=== PATIENT | female | born 1950 | race Caucasian/White ===

== ENCOUNTER 2016-11-28 23:19 | Emergency (ER) | payer MEDICARE, OTHER ==
[2016-11-28] MEDS ORDERED: ONDANSETRON HCL INJ/PF 4 MG/2 ML SDV IV ONE (23:32)
[2016-11-28] MEDS ORDERED: MORPHINE SULFATE 10 MG/ML INJ IV ONE (23:32)
[2016-11-28] MEDS ORDERED: NORMAL SALINE 1000 ML 500 ML IV ONE (23:32)
[2016-11-29 00:47] LABS: ABSOLUTE EOSINOPHILS # (AUTO) 0.1 10^3/uL (0.0-0.6); ABSOLUTE LYMPHOCYTES (AUTO) 1.2 10^3/uL (0.5-4.7); ABSOLUTE MONOCYTES (AUTO) 0.7 10^3/uL (0.1-1.4); ABSOLUTE NEUT (AUTO) 8.4 10^3/uL (1.7-8.2); BASOPHILS % (AUTO) 0.3 % (0-2); HEMATOCRIT 44.2 % (36.0-47.0); HEMOGLOBIN 14.8 g/dL (12.0-15.5); HGB HCT DIFFERENCE 0.2; LYMPHOCYTES % (AUTO) 11.6 % (13-45); MEAN CORPUSCULAR HEMOGLOBIN 28.1 pg (27.0-33.4); MEAN CORPUSCULAR HGB CONC 33.4 g/dL (32.0-36.0); MEAN CORPUSCULAR VOLUME 84 fl (80-97); MONOCYTES % (AUTO) 6.4 % (3-13); RED BLOOD COUNT 5.25 10^6/uL (3.72-5.28); RED CELL DISTRIBUTION WIDTH 14.3 % (11.5-14.0); SEGMENTED NEUTROPHILS % (AUTO) 80.7 % (42-78); WHITE BLOOD COUNT 10.5 10^3/uL (4.0-10.5)
[2016-11-29 01:05] LABS: ALANINE AMINOTRANSFERASE 32 U/L (9-52); ALBUMIN 4.8 g/dL (3.5-5.0); ALKALINE PHOSPHATASE 121 U/L (38-126); ANION GAP 12 (5-19); ASPARTATE AMINO TRANSFERASE 21 U/L (14-36); BILIRUBIN,TOTAL 0.8 mg/dL (0.2-1.3); BLOOD UREA NITROGEN 13 mg/dL (7-20); CALCIUM 10.2 mg/dL (8.4-10.2); CARBON DIOXIDE 27 mmol/L (22-30); CHLORIDE 101 mmol/L (98-107); CREATINE KINASE 49 U/L (30-135); CREATININE RESULT 0.62 mg/dL (0.52-1.25); GLUCOSE 115 mg/dL (75-110); POTASSIUM 4.5 mmol/L (3.6-5.0); SODIUM 139.5 mmol/L (137-145); TOTAL PROTEIN 7.3 g/dL (6.3-8.2)
[2016-11-29 01:13] LABS: CREATINE KINASE MB 0.51 ng/mL (<4.55)
[2016-11-29 01:17] LABS: TROPONIN I < 0.012 ng/mL
--- NOTE | 2016-11-29 01:37 | ER Document Report ---
ED General - General Chief Complaint: Chest Pain Stated Complaint: NECK/CHEST PAIN Notes: Patient is 66-year-old female presents with complaint of pain was initially in her neck and trapezius area but now is ready into her left upper chest. Pain started 3 days ago but became more into her chest today. Pain is worse when she takes a deep breath. No fevers. She has no focal vomiting. She's had some mild amount of upper abdominal pain as well. She did have a Kaleb-en-Y surgery performed due to severe acid reflux. This was performed in May. She 's had no complications since then. She does not take any acid reflux type medications. No history of cardiac disease. No history of hypertension and diabetes. She does not smoke. No history of PE or DVT. No recent leg pain or leg swelling. She had normal nuclear stress test almost exactly one year ago. TRAVEL OUTSIDE OF THE [place] IN LAST 30 DAYS: No - Related Data Allergies/Adverse Reactions: Sulfa (Sulfonamide Antibiotics) Allergy (Verified 10/02/14 12:57) Past Medical History - Social History Smoking Status: Never Smoker Frequency of alcohol use: None Drug Abuse: None Family History: Reviewed & Not Pertinent Pulmonary Medical History: Reports: Hx Asthma, Hx COPD, Hx Pneumonia Neurological Medical History: Denies: Hx Seizures GI Medical History: Reports: Hx Gastroesophageal Reflux Disease Past Surgical History: Reports: Hx Abdominal Surgery - doug fundoplication, Hx Cholecystectomy, Hx Genitourinary Surgery - bladder sling, Hx Gynecologic Surgery - D&C, Hx Hysterectomy - Immunizations Hx Diphtheria, Pertussis, Tetanus Vaccination: - unk Review of Systems - Review of Systems Notes: My Normal Review Basic REVIEW OF SYSTEMS: CONSTITUTIONAL : Denies fever, chills, or sweats. Denies recent illness. EENT: Denies eye, ear, throat, or mouth pain or symptoms. Denies nasal or sinus congestion. CARDIOVASCULAR: Pleuritic chest pain RESPIRATORY: Denies cough, cold, or chest congestion. Denies shortness of breath, difficulty breathing, or wheezing. GASTROINTESTINAL: Mild upper abdominal pain. Some nausea. Denies constipation. Last BM: GENITOURINARY: Denies difficulty urinating, painful urination, burning, frequency, or blood in urine. MUSCULOSKELETAL: Denies neck or back pain or joint pain or swelling. SKIN: Denies rash or skin lesions. NEUROLOGICAL: Denies altered mental status or loss of consciousness. Denies headache. Denies weakness or paralysis or loss of use of either side. Denies problems with gait or speech. Denies sensory or motor loss. ALL OTHER SYSTEMS REVIEWED AND NEGATIVE. Physical Exam - Vital signs Vitals: Temp Pulse Resp BP Pulse Ox 98.4 F 90 14 120/63 96 11/28/16 23:30 11/28/16 23:30 11/28/16 23:30 11/28/16 23:30 11/28/16 23:30 - Notes Notes: General Appearance: Well nourished, alert, cooperative, no acute distress, no obvious discomfort. Vitals: reviewed, See vital signs table. Head: no swelling or tenderness to the head Eyes: PERRL, EOMI, Conjuctiva clear Mouth: No decreasd moisture Throat: No tonsillar inflammation, No airway obstruction, No lymphadenopathy Chest wall: Patient is very tender to palpation of the left anterior chest wall. A previous palpation the same pain patient's been having. Neck: Supple, no neck tenderness, No thyromegaly Lungs: No wheezing, No rales, No rhonci, No accessory muscle use, good air exchange bilaterally. Heart: Normal rate, Regular rythm, No murmur, no rub Abdomen: Normal BS, soft, No rigidity, mild upper abdominal tenderness to palpation, No guarding, no rebound, no abdominal masses, no organomegaly Extremities: strength 5/5 in all extremities, good pulses in all extremities, no swelling or tenderness in the extremities, no edema. Skin: warm, dry, appropriate color, no rash Neuro: speech clear, oriented x 3, normal affect, responds appropriately to questions. Course - Re-evaluation Re-evalutation: 11/29/16 02:28 Chest x-ray read is not back. I just looked patient's chest x-ray and she has what appears to be a possible diaphragmatic rupture. I will send her to CT scan right away to see if this is actually diaphragm rupture or not. Patient clinically still looks well. She has pain but she is not toxic appearing. Her blood pressure is a little in the low side with her systolic being in the 90s. We will send a CT scan immediately so I can determine exactly what the findings on chest x-ray mean. 11/29/16 04:[address] scan does confirm that she does have a diaphragmatic hernia. I did call and speak with Dr. Menezes, surgeon, for Dr. Cabrera, at [facility]. He requested we send the patient as an ED to ED transfer so that he can see her immediately to determine if he has to intervene or not. I spoke with the patient and she agrees with transfer. 11/29/16 05:16 Transport is arrived. Patient is medically stable for transfer port. She is awake and alert and well-appearing at time of transfer. - Vital Signs Vital signs: Temp Pulse Resp BP Pulse Ox 98.4 F 90 14 96/57 L 94 11/28/16 23:30 11/28/16 23:30 11/29/16 04:16 11/29/16 04:16 11/29/16 04:01 - Laboratory Result Diagrams: 11/29/16 00:37 11/29/16 00:37 Laboratory results interpreted by me: 11/29/16 11/29/16 11/29/16 00:37 00:37 00:37 RDW 14.3 H Seg Neutrophils % 80.7 H Lymphocytes % 11.6 L Absolute Neutrophils 8.4 H D-Dimer 0.88 H Glucose 115 H - EKG Interpretation by Me Additional EKG results interpreted by me: 11/29/16 01:43 EKG is reviewed and interpreted by me. EKG shows sinus rhythm with rate of [address] segment elevation or depression. No ischemic T wave inversions. Occasional PAC. MS interval, QRS duration, QTC intervals are within normal range. Old EKG for comparison is from 11/20/2015. - Transfer of Care Notes: 11/29/16 05:17 Patient unfortunately has diaphragmatic hernia. Dr. Menezes was very kind and accepted her to [facility] for further treatment of her diaphragmatic hernia which I suspect is causing her chest pain, upper back pain, and vomiting. Dictation of this chart was performed using voice recognition software; therefore, there may be some unintended grammatical errors. Discharge - Discharge Clinical Impression: Diaphragmatic hernia Qualifiers: Obstruction and gangrene presence: without obstruction or gangrene Qualified Code(s): K44.9 - Diaphragmatic hernia without obstruction or gangrene Condition: Stable Disposition: [facility]
[2016-11-29] MEDS ORDERED: MORPHINE SULFATE 10 MG/ML INJ IV ONE (02:14)
[2016-11-29] MEDS ORDERED: FENTANYL CITRATE INJ/PF 100 MCG/2 ML AMPUL IV ONE ×2 (03:06→05:08)
[2016-11-29 05:27] VITALS: BP 107/56
--- NOTE | 2016-11-29 12:32 | EKG REPORT ---
SEVERITY:- OTHERWISE NORMAL ECG - SINUS RHYTHM VENTRICULAR PREMATURE COMPLEX : Confirmed by: Fabienne Poole 29-Nov-2016 12:31:38
== END 2016-11-29 05:24 | disposition short-term general hospital (02) ==
LOC: ER 23:19
DX: K44.9 Diaphragmatic hernia without obstruction or gangrene (principal); R07.9 Chest pain, unspecified; I49.1 Atrial premature depolarization; R10.10 Upper abdominal pain, unspecified; R11.2 Nausea with vomiting, unspecified; J44.9 Chronic obstructive pulmonary disease, unspecified; J45.909 Unspecified asthma, uncomplicated; Z98.890 Other specified postprocedural states; Z87.19 Personal history of other diseases of the digestive system; Z88.2 Allergy status to sulfonamides; Z87.01 Personal history of pneumonia (recurrent); Z90.49 Acquired absence of other specified parts of digestive tract
CPT/HCPCS: 93005; 96376; 99285; 96361; 96374; 96375; 36415; 82553; 82550; 85025; 80053; 84484; 85379; 71010; 71275; 74177; 93010; J3010; J2270; J2405; J7030

== ENCOUNTER 2017-12-23 08:08 | Emergency (ER) | payer MEDICARE, OTHER ==
[2017-12-23] MEDS ORDERED: ASPIRIN 81 MG TABLET, CHEWABLE PO ONE (08:40)
--- NOTE | 2017-12-23 09:10 | ER Document Report ---
ED General - General Chief Complaint: Chest Pain > 30 Stated Complaint: CHEST PAIN Time Seen by Provider: 12/23/17 08:49 Notes: Patient is a 67-year-old female presents emergency department complaining of chest wall pain. Patient states that her pain started yesterday morning when she woke up. She denies any heavy lifting or recent physical activity, falls or trauma. She states that it is a burning constant pain that is worse with movement and at its worst a 4 out of 5 in severity. She points to her left pectoral muscle as being the source for discomfort. She states it is worse with lying down it with deep inspiration. Take anything for pain prior to arrival. Denies any recent upper respiratory infection, fever or chills. Past medical history significant for history of COPD, urge incontinence, restless leg syndrome, GERD, hyperlipidemia, history of Kaur's esophagus and gastroparesis. Past surgical history significant for 3 previous hiatal hernia repairs with fundoplication, cholecystectomy, bladder sling, D&C and Kaleb-en-Y in May. Social history: Denies any tobacco use. Admits to social alcohol use admits to daily marijuana use. TRAVEL OUTSIDE OF THE [place] IN LAST 30 DAYS: No - Related Data Allergies/Adverse Reactions: Sulfa (Sulfonamide Antibiotics) Allergy (Verified 10/02/14 12:57) Past Medical History - Social History Smoking Status: Never Smoker Chew tobacco use (# tins/day): No Frequency of alcohol use: Occasional Drug Abuse: None Family History: Reviewed & Not Pertinent Patient has suicidal ideation: No Patient has homicidal ideation: No Pulmonary Medical History: Reports: Hx Asthma, Hx COPD, Hx Pneumonia Neurological Medical History: Denies: Hx Seizures Renal/ Medical History: Denies: Hx Peritoneal Dialysis GI Medical History: Reports: Hx Gastroesophageal Reflux Disease Past Surgical History: Reports: Hx Abdominal Surgery - doug fundoplication, Hx Cholecystectomy, Hx Genitourinary Surgery - bladder sling, Hx Gynecologic Surgery - D&C, Hx Hysterectomy - Immunizations Hx Diphtheria, Pertussis, Tetanus Vaccination: - unk Review of Systems - Review of Systems Notes: REVIEW OF SYSTEMS: CONSTITUTIONAL : Denies fever, chills, or sweats. Denies recent illness. EENT: Denies eye, ear, throat, or mouth pain or symptoms. Denies nasal or sinus congestion or discharge. Denies throat, tongue, or mouth swelling or difficulty swallowing. CARDIOVASCULAR: See HPI denies palpitations or racing or irregular heart beat. Denies ankle edema. RESPIRATORY: Denies cough, cold, or chest congestion. Denies shortness of breath, difficulty breathing, or wheezing. GASTROINTESTINAL: Denies abdominal pain or distention. Denies nausea, vomiting , or diarrhea. Denies blood in vomitus, stools, or per rectum. Denies black, tarry stools. Denies constipation. MUSCULOSKELETAL: See HPI denies any muscle spasms, difficulty walking, extremity pain SKIN: Denies rash, lesions or sores. HEMATOLOGIC : Denies easy bruising or bleeding. LYMPHATIC: Denies swollen, enlarged glands. NEUROLOGICAL: Denies confusion or altered mental status. Denies passing out or loss of consciousness. Denies dizziness or lightheadedness. Denies headache. Denies weakness or paralysis or loss of use of either side. Denies problems with gait or speech. Denies sensory loss, numbness, or tingling. Denies seizures. PSYCHIATRIC: Denies anxiety or stress. Denies depression, suicidal ideation, or homicidal ideation. ALL OTHER SYSTEMS REVIEWED AND NEGATIVE. Dictation was performed using [employer] voice recognition software Physical Exam - Vital signs Vitals: Temp Pulse Resp BP Pulse Ox 98.0 F 94 20 129/72 H 96 12/23/17 08:21 12/23/17 08:21 12/23/17 08:21 12/23/17 08:21 12/23/17 08:21 - Notes Notes: PHYSICAL EXAM GENERAL: Alert, interacts well. HEAD: Normocephalic, atraumatic. EYES: Pupils equal, round, and reactive to light. Extraocular movements intact. ENT: Oral mucosa moist, tongue midline. NECK: Full range of motion. Supple. Trachea midline. LUNGS: Clear to auscultation bilaterally, no wheezes, rales, or rhonchi. No respiratory distress. HEART: Chest wall on the left side tender to palpation with pain reproducible palpation. Regular rate and rhythm. No murmurs, gallops, or rubs. ABDOMEN: Soft, nondistended, nontender. No guarding, rebound, or rigidity.. Bowel sounds present in all 4 quadrants. EXTREMITIES: Moves all 4 extremities spontaneously. No edema, radial and dorsalis pedis pulses 2/4 bilaterally. No cyanosis. NEUROLOGICAL: Alert and oriented x4. Normal speech. PSYCH: Normal affect, normal mood. SKIN: Warm, dry, normal turgor. No rashes or lesions noted. Course - Re-evaluation Re-evalutation: 12/23/17 14:06 Patient is a 67-year-old female is admitted with stable, no acute distress and afebrile. Patient is very well in appearance, vitals within normal limits. Low clinical suspicion for ACS given clinical history, exam, EKG without ST elevations or depressions, and negative initial troponin. HEART score less than or equal to 3. PERC rule could not be applied given patient's age. D-dimer was elevated. CTA negative for PE.. Well's score of 0. CXR without evidence of pneumothorax or pneumonia. No widened mediastinum. Aortic dissection also seems unlikely given history, symmetric pulses, CXR, and vitals. At this time will discharge with return precautions and follow-up recommendations. Discussed that evidence supports musculoskeletal cause given physical exam and benign findings at this time. Verbal discharge instructions given a the bedside and opportunity for questions given. Medication warnings reviewed. Patient is in agreement with this plan and has verbalized understanding of return precautions and the need for primary care follow-up in the next 24-72 hours. - Vital Signs Vital signs: Temp Pulse Resp BP Pulse Ox 98.9 F 94 22 H 128/82 H 95 12/23/17 14:00 12/23/17 08:21 12/23/17 14:01 12/23/17 14:00 12/23/17 14:01 - Laboratory Result Diagrams: 12/23/17 08:56 12/23/17 08:56 Laboratory results interpreted by me: 12/23/17 12/23/17 12/23/17 08:56 08:56 08:56 WBC 12.5 H MCV 79 L MCH 25.8 L RDW 18.4 H Plt Count 603 H Absolute Neutrophils 9.3 H D-Dimer 1.22 H Glucose 111 H - Diagnostic Test Radiology reviewed: Image reviewed, Reports reviewed - EKG Interpretation by Me EKG shows normal: Sinus rhythm Rate: Normal Rhythm: NSR When compared to previous EKG there are: No significant change Discharge - Discharge Clinical Impression: Chest wall pain Condition: Good Disposition: HOME, SELF-CARE Additional Instructions: CHEST PAIN OF UNCLEAR CAUSE: The exact cause of your chest pain isn't clear. Fortunately, there is no evidence of a dangerous medical condition. Further testing may be required to find the source of the pain. Most often, we find that this pain is coming from the chest wall -- the muscles or rib joints in the chest. But chest pain can come from the lung and lung lining, the esophagus, the heart valves or heart lining, and even the stomach or gallbladder. Rest. Eat lightly until the pain is gone. We may prescribe medicine for pain and inflammation. You should call the physician immediately if the pain radiates to the shoulder, jaw or arms; if you start to run a fever or develop a cough; or if you develop shortness of breath, or other new or alarming symptoms. NORMAL EXAM AND WORKUP: At this time, your examination and workup show no significant abnormality. No significant abnormal physical findings were noted. All laboratory, EKG, and imaging (x-ray, CT scans, ultrasound) studies that were ordered show no significant abnormality. Although your examination and all studies that were ordered showed no significant abnormal finding, there are no examinations and no studies that are 100% accurate. There is always the possibility that some abnormality could exist and not be detected with physical examination or within the limits and capabilities of laboratory and other studies. You should return or follow up as you were instructed on your visit today for further evaluation if your symptoms do not resolve. CHEST WALL PAIN: Your chest pain may be coming from the chest wall. This is often caused by straining the muscles or joints in the chest during physical activity, direct trauma, coughing, or vigorous vomiting. Persons with arthritis are especially prone to this type of pain, due to inflammation of the cartilage joints near the breast bone. Occasionally, no cause can be found. Rest from strenuous physical activity. This kind of chest pain is usually made worse by movement of the chest. Depending on the symptoms, we may prescribe medicine for pain, muscle relaxation, and antiinflammatory effects. If the pain is new, and seems to be due to muscle strain, cold packs can help. Otherwise, apply gentle warmth to the painful area for 15 minutes every hour or two. You should call contact the doctor immediately if things change. Further evaluation is needed if you develop a fever or cough, if the nature of the pain changes, or if you become short of breath. FOLLOW-UP CARE: If you have been referred to a physician for follow-up care, call the physician s office for an appointment as you were instructed or within the next two days. If you experience worsening or a significant change in your symptoms, notify the physician immediately or return to the Emergency Department at any time for re-evaluation. Referrals: MATTEO MOYA MD [EMERITUS] - Follow up in 1 week [facility] [Provider Group] - Follow up tomorrow
[2017-12-23 09:13] LABS: ABSOLUTE BASOPHILS # (AUTO) 0.1 10^3/uL (0.0-0.2); ABSOLUTE EOSINOPHILS # (AUTO) 0.1 10^3/uL (0.0-0.6); ABSOLUTE NEUT (AUTO) 9.3 10^3/uL (1.7-8.2); BASOPHILS % (AUTO) 0.9 % (0-2); EOSINOPHILS % (AUTO) 0.5 % (0-6); HEMATOCRIT 38.2 % (36.0-47.0); HEMOGLOBIN 12.5 g/dL (12.0-15.5); MEAN CORPUSCULAR HEMOGLOBIN 25.8 pg (27.0-33.4); MEAN CORPUSCULAR HGB CONC 32.7 g/dL (32.0-36.0); MEAN CORPUSCULAR VOLUME 79 fl (80-97); PLATELET COUNT 603 10^3/uL (150-450); RED BLOOD COUNT 4.86 10^6/uL (3.72-5.28); RED CELL DISTRIBUTION WIDTH 18.4 % (11.5-14.0); SEGMENTED NEUTROPHILS % (AUTO) 74.6 % (42-78); TOTAL CELLS COUNTED % (AUTO) 100 %; WHITE BLOOD COUNT 12.5 10^3/uL (4.0-10.5)
[2017-12-23] MEDS ORDERED: MAG HYDROX/AL HYDROX/SIMETH SUSP 30 ML UDCUP PO ONE (09:26)
[2017-12-23] MEDS ORDERED: LIDOCAINE 2% VISCOUS SOLN 20 ML UDCUP PO ONE (09:26)
[2017-12-23] MEDS ORDERED: METOCLOPRAMIDE HCL ORAL SOLN 10 MG/10 ML UDCUP PO ONE (09:26)
[2017-12-23 09:31] LABS: ALANINE AMINOTRANSFERASE 35 U/L (9-52); ALBUMIN 4.4 g/dL (3.5-5.0); ALKALINE PHOSPHATASE 126 U/L (38-126); ANION GAP 10 (5-19); ASPARTATE AMINO TRANSFERASE 26 U/L (14-36); BILIRUBIN,DIRECT 0.4 mg/dL (0.0-0.4); BILIRUBIN,TOTAL 0.4 mg/dL (0.2-1.3); BLOOD UREA NITROGEN 12 mg/dL (7-20); CALCIUM 9.4 mg/dL (8.4-10.2); CARBON DIOXIDE 25 mmol/L (22-30); CHLORIDE 107 mmol/L (98-107); CREATINE KINASE 64 U/L (30-135); GLUCOSE 111 mg/dL (75-110); SODIUM 141.8 mmol/L (137-145); TOTAL PROTEIN 7.4 g/dL (6.3-8.2)
--- NOTE | 2017-12-23 09:32 | RADIOLOGY REPORT (SQ) ---
EXAM DESCRIPTION: ACUTE ABDOMEN SERIES COMPLETED DATE/TIME: 12/23/2017 9:23 am REASON FOR STUDY: chest/epigastric pain with previous hiatal hernia COMPARISON: CT dated 11/29/2016. NUMBER OF VIEWS: Three views. TECHNIQUE: Frontal chest, supine abdomen and upright/decubitus abdomen radiographic images acquired. LIMITATIONS: None. FINDINGS: CHEST: Lungs clear of infiltrates. Mild scarring in the left lung base. FREE AIR: None. No abnormal gas collections. BOWEL GAS PATTERN: Nonobstructive pattern. No dilated loops or air fluid levels. CALCIFICATIONS: No suspicious calcifications. HARDWARE: Multiple surgical clips. SOFT TISSUES: No gross mass or suggestion of organomegaly. BONES: No acute fracture. Old rib fractures. No worrisome bone lesions. OTHER: No other significant finding. IMPRESSION: NO RADIOGRAPHIC EVIDENCE FOR ACUTE ABDOMINAL DISEASE. PREVIOUSLY SEEN LEFT DIAPHRAGMATI C HERNIA HAS BEEN SURGICALLY REPAIRED. TECHNICAL DOCUMENTATION: JOB ID: [id number] [employer]- All Rights Reserved Reading location - IP/workstation name: [email or web address]
[2017-12-23] MEDS ORDERED: KETOROLAC TROMETHAMINE INJ/PF 30 MG/1 ML SDV IV ONE (10:31)
[2017-12-23] MEDS ORDERED: ONDANSETRON HCL INJ/PF 4 MG/2 ML SDV IV ONE (10:31)
--- NOTE | 2017-12-23 12:09 | RADIOLOGY REPORT (SQ) ---
EXAM DESCRIPTION: CTA CHEST COMPLETED DATE/TIME: 12/23/2017 11:46 am REASON FOR STUDY: chest pain COMPARISON: CT angio chest 11/20/2015, 11/29/2016 Three-way abdomen series 12/23/2017 TECHNIQUE: CT scan of the chest performed using helical scanning technique with dynamic intravenous contrast injection. Images reviewed with lung, soft tissue and bone windows. Reconstructed coronal and sagittal MPR images reviewed. Additional 3 dimensional post-processing performed to develop Maximal Intensity Projection images (AL P). All images stored on PACS. All CT scanners at this facility use dose modulation, iterative reconstruction, and/or weight based d osing when appropriate to reduce radiation dose to as low as reasonably achievable (ALARA). [facility]: Dose Right [facility]: CareDose [facility]: Dose Right [facility]: Teradose 4D [facility]: MVERSE CONTRAST TYPE AND DOSE: contrast/concentration: Isovue 370.00 mg/ml; Total Contrast Delivered: 66.0 ml; Total Saline Delivered: 107.0 ml Contrast bolus adequate for pulmonary arteries and aorta. RENAL FUNCTION: Creatinine 0.62 RADIATION DOSE: CT Rad equipment meets quality standard of care and radiation dose reduction techniq ues were employed. CTDIvol: 14.3 - 19.8 mGy. DLP: 531 mGy-cm. . LIMITATIONS: None. FINDINGS: LUNGS AND PLEURA: There is minimal bibasilar atelectasis or scarring. No fluffy alveolar infiltrates worrisome for edema or pneumonia. No pleural effusion. No pneumothorax. AORTA AND GREAT VESSELS: No aneurysm. Contrast bolus not optimized for the aorta. HEART: No pericardial effusion. Minimal coronary artery calcification, no significant aortic valve ca lcification PULMONARY ARTERIES: No emboli visualized in the main pulmonary arteries or the segmental branches. HILAR AND MEDIASTINAL STRUCTURES: No identified masses or abnormal nodes. HARDWARE: None in the chest. UPPER ABDOMEN: Post splenectomy, Billroth 2 partial gastrectomy versus gastric bypass procedure, and cholecystectomy. THYROID AND OTHER SOFT TISSUES: No masses. No adenopathy. BONES: Multiple old healed and nonunited right posterolateral rib fractures. 3D MIPS: Confirm above findings. OTHER: Since the prior study from 11/29/2016, patient has had repair of the left hemidiaphragm. [place] kyle left hemidiaphragm seen on 11/29/2016 has resolved. IMPRESSION: No CT angio evidence of acute pulmonary emboli COMMENT: Quality ID # [id number]: Final reports with documentation of one or more dose reduction techniques (e.g., Automated exposure control, adjustment of the mA and/or kV according to patient size, use of iterative reconstruction technique) TECHNICAL DOCUMENTATION: JOB ID: [id number] [employer]- All Rights Reserved Reading location - IP/workstation name: [email or web address]
--- NOTE | 2017-12-23 12:32 | EKG REPORT ---
SEVERITY:- NORMAL ECG - SINUS RHYTHM : Confirmed by: Stoney Khan MD 23-Dec-2017 12:32:14
[2017-12-23 14:19] VITALS: BP 128/82
== END 2017-12-23 14:19 | disposition home or self-care (01) ==
LOC: ER 08:08
DX: R07.89 Other chest pain (principal); J44.9 Chronic obstructive pulmonary disease, unspecified; Z87.01 Personal history of pneumonia (recurrent)
CPT/HCPCS: 93005; 99285; 96374; 96375; 36415; 82550; 85025; 80053; 84484; 85379; 74022; 71275; 93010; A9270 ×2; J3490; J1885; J2405

== ENCOUNTER → 2018-03-16 | Outpatient (CLI) | payer MEDICARE, OTHER | LOC: LAB 10:56 | PROVIDERS: ATTEND Internal Medicine Gastroenterology | DX: G25.81 Restless legs syndrome (principal); K31.89 Other diseases of stomach and duodenum; D50.0 Iron deficiency anemia secondary to blood loss (chronic) | CPT/HCPCS: 36415; 82728 ==

== ENCOUNTER → 2018-04-27 | Outpatient (CLI) | payer MEDICARE, OTHER | LOC: LAB 14:53 | PROVIDERS: ATTEND Internal Medicine | DX: E55.9 Vitamin D deficiency, unspecified (principal); D50.9 Iron deficiency anemia, unspecified | CPT/HCPCS: 36415; 82306; 83540 ==

== ENCOUNTER → 2019-07-14 | Outpatient (CLI) | payer MEDICARE, OTHER ==
--- NOTE | 2019-07-14 15:17 | RADIOLOGY REPORT (SQ) ---
EXAM DESCRIPTION: MRI HEAD COMBO COMPLETED DATE/TIME: 07/14/2019 2:41 pm REASON FOR STUDY: H53.2 DIPLOPIA H53.2 DIPLOPIA COMPARISON: None. TECHNIQUE: Multiplanar imaging includes noncontrasted T1, T2, FLAIR, diffusion with ADC map and post gadolinium contrast T1 sequences. Images stored on PACS. CONTRAST TYPE AND DOSE: 10 mL Dotarem. RENAL FUNCTION: Not indicated. ACR Type II contrast agent associated with few, if any, unconfounded cases of NSF LIMITATIONS: None. FINDINGS: ANATOMY: No anomalies. Normal vascular flow voids. Pituitary fossa normal. CSF SPACES: Normal in size and contour. No hemorrhage. CEREBRUM: Sulci and gyri normal in size and contour. Occasional, scattered small foci of T2/FLAIR wh ite matter hyperintensity. No evidence of hemorrhage, mass, or extraaxial fluid collection. No abnor mal enhancement post contrast. POSTERIOR FOSSA: No signal alteration. No hemorrhage. No edema, masses, or mass effect. Internal antonio tory canals, cerebellopontine angles, mastoids normal. No enhancing lesions. No abnormal enhancement post contrast. DIFFUSION IMAGING: Negative for acute or subacute infarction. ORBITS: No masses. Globes normal. PARANASAL SINUSES: No fluid levels. Mucosa normal. OTHER: No other significant finding. IMPRESSION: 1. No MR abnormality of the brain to explain diplopia. No MR abnormality of the optic nerves. No abnormal intracranial contrast enhancement. 2. Occasional, scattered small foci of T2/FLAIR white matter hyperintensity, likely minimal small ve ssel white matter disease although nonspecific. EVIDENCE OF ACUTE STROKE: NO. TECHNICAL DOCUMENTATION: JOB ID: [id number] [employer]- All Rights Reserved Reading location - IP/workstation name: [email or web address]
== END ==
LOC: RAD 13:37
PROVIDERS: ATTEND Family Medicine
DX: H53.2 Diplopia (principal)
CPT/HCPCS: 70553; A9576

== ENCOUNTER 2019-08-30 01:48 | Inpatient (IN) | payer MEDICARE, OTHER ==
[2019-08-30 02:49] LABS: ABSOLUTE BASOPHILS # (AUTO) 0.1 10^3/uL (0.0-0.2); ABSOLUTE EOSINOPHILS # (AUTO) 0.2 10^3/uL (0.0-0.6); ABSOLUTE LYMPHOCYTES (AUTO) 3.4 10^3/uL (0.5-4.7); ABSOLUTE MONOCYTES (AUTO) 0.9 10^3/uL (0.1-1.4); BASOPHILS % (AUTO) 1.3 % (0-2); EOSINOPHILS % (AUTO) 2.4 % (0-6); HEMATOCRIT 40.5 % (36.0-47.0); HEMOGLOBIN 13.6 g/dL (12.0-15.5); MEAN CORPUSCULAR HEMOGLOBIN 28.7 pg (27.0-33.4); MEAN CORPUSCULAR HGB CONC 33.5 g/dL (32.0-36.0); MEAN CORPUSCULAR VOLUME 86 fl (80-97); MONOCYTES % (AUTO) 10.4 % (3-13); PLATELET COUNT 498 10^3/uL (150-450); RED BLOOD COUNT 4.73 10^6/uL (3.72-5.28); RED CELL DISTRIBUTION WIDTH 15.1 % (11.5-14.0); SEGMENTED NEUTROPHILS % (AUTO) 46.9 % (42-78); TOTAL CELLS COUNTED % (AUTO) 100 %; WHITE BLOOD COUNT 8.6 10^3/uL (4.0-10.5)
[2019-08-30 03:07] LABS: ALBUMIN 4.4 g/dL (3.5-5.0); ALKALINE PHOSPHATASE 72 U/L (38-126); ANION GAP 11 (5-19); ASPARTATE AMINO TRANSFERASE 17 U/L (14-36); BILIRUBIN,DIRECT 0.1 mg/dL (0.0-0.4); BILIRUBIN,TOTAL 0.4 mg/dL (0.2-1.3); BLOOD UREA NITROGEN 19 mg/dL (7-20); CALCIUM 9.8 mg/dL (8.4-10.2); CARBON DIOXIDE 23 mmol/L (22-30); CHLORIDE 108 mmol/L (98-107); GLUCOSE 80 mg/dL (75-110); POTASSIUM 4.2 mmol/L (3.6-5.0); TOTAL PROTEIN 7.3 g/dL (6.3-8.2)
--- NOTE | 2019-08-30 03:09 | RADIOLOGY REPORT (SQ) ---
CLINICAL HISTORY: syncope/fall COMPARISON: None. TECHNIQUE: CT HEAD WITHOUT IV CONTRAST on 08/30/2019 2:20 AM [employer] This exam was performed according to our departmental dose-optimization program, which includes automated exposure control, adjustment of the mA and/or kV according to patient size and/or use of iterative reconstruction technique. FINDINGS: There is no acute hemorrhage, mass effect or midline shift. Porter-white differentiation is preserved. There is no hydrocephalus. There is no significant volume loss for age. There are mild patchy hypodensities within the periventricular and subcortical white matter, consistent with microangiopathic ischemic changes. The calvarium is intact. Orbits and globes are unremarkable. The paranasal sinuses are clear. Mastoid air cells are clear. IMPRESSION: No acute intracranial findings.
[2019-08-30] MEDS ORDERED: ONDANSETRON HCL INJ/PF 4 MG/2 ML SDV IV ONE (03:17)
[2019-08-30] MEDS ORDERED: KETOROLAC TROMETHAMINE INJ/PF 30 MG/1 ML SDV IV ONE (03:37)
[2019-08-30] MEDS ORDERED: NORMAL SALINE 1000 ML 1,000 ML IV ONE ×2 (04:14→04:41)
[2019-08-30 04:58] LABS: APPEARANCE,URINE SLIGHTLY-CLOUDY; BILIRUBIN,URINE NEGATIVE (NEGATIVE); COLOR,URINE YELLOW; GLUCOSE, URINE NEGATIVE (NEGATIVE); KETONES,URINE NEGATIVE (NEGATIVE); LEUKOCYTE ESTERASE,URINE TRACE (NEGATIVE); NITRITE,URINE NEGATIVE (NEGATIVE); PROTEIN,URINE NEGATIVE (NEGATIVE); URINE SPECIFIC GRAVITY 1.013; UROBILINOGEN,URINE NEGATIVE mg/dL (<2.0)
--- NOTE | 2019-08-30 05:23 | ER Document Report ---
ED General - General Chief Complaint: Dizziness Stated Complaint: DIZZINESS,HEADACHE Time Seen by Provider: 08/30/19 01:53 Notes: Patient is a 69-year-old female presents to the emergency department for a syncopal episode. Patient voices she was in the process of turning off her fireplace to go to bed. States there was no prodrome. States she just "passed out." States she remembers waking up on the floor. States she was able to call to her who then alerted 911. Patient voices she is unsure of exactly how long she was unresponsive. Patient's denying any incontinence. States now has a headache, generalized dizziness and nausea. She is denying any chest pain, shortness of breath, vomiting, diarrhea. She is denying any fevers or dysuria. She is denying any abdominal pain. Patient voices no prodrome. States she was feeling "fine" prior to attempting to go to bed. Patient voices she does have a recent history of diplopia. States on 07/14/2019 she did undergo an MRI. Patient's denying any diplopia, blurred vision prior to the syncopal episode or currently. Patient voices a history of restless leg syndrome and GERD Medications: Omeprazole, Zoloft, Requip Allergies: Sulfa TRAVEL OUTSIDE OF THE [place] IN LAST 30 DAYS: No - Related Data Allergies/Adverse Reactions: Sulfa (Sulfonamide Antibiotics) Allergy (Verified 10/02/14 12:57) Home Medications: zoloft. meprozol. ropinerol Past Medical History - General Information source: Patient - Social History Smoking Status: Never Smoker Chew tobacco use (# tins/day): No Frequency of alcohol use: Rare Drug Abuse: None Family History: Reviewed & Not Pertinent Patient has suicidal ideation: No Patient has homicidal ideation: No Pulmonary Medical History: Reports: Hx Asthma, Hx COPD, Hx Pneumonia Neurological Medical History: Denies: Hx Seizures Renal/ Medical History: Denies: Hx Peritoneal Dialysis GI Medical History: Reports: Hx Gastroesophageal Reflux Disease Past Surgical History: Reports: Hx Abdominal Surgery - doug fundoplication, Hx Cholecystectomy, Hx Genitourinary Surgery - bladder sling, Hx Gynecologic Surgery - D&C, Hx Hysterectomy - Immunizations Hx Diphtheria, Pertussis, Tetanus Vaccination: - unk Review of Systems - Review of Systems Constitutional: denies: Fever EENT: See HPI Cardiovascular: See HPI Respiratory: denies: Cough, Short of breath Gastrointestinal: See HPI Genitourinary: denies: Dysuria Female Genitourinary: No symptoms reported Musculoskeletal: denies: Back pain, Neck pain Skin: No symptoms reported Hematologic/Lymphatic: No symptoms reported Neurological/Psychological: See HPI Physical Exam - Vital signs Vitals: Temp Resp Pulse Ox 98.8 F 21 H 96 08/30/19 02:03 08/30/19 02:03 08/30/19 02:03 - Notes Notes: GENERAL: Alert, interacts well. No acute distress. HEAD: Normocephalic, atraumatic. EYES: Pupils equal, round, and reactive to light. Extraocular movements intact. ENT: Oral mucosa moist, tongue midline. NECK: Full range of motion. Supple. Trachea midline. LUNGS: Clear to auscultation bilaterally, no wheezes, rales, or rhonchi. No respiratory distress. HEART: Regular rate and rhythm. No murmur ABDOMEN: Soft, non-tender. Non-distended. Bowel sounds present in all 4 quadrants. EXTREMITIES: Moves all 4 extremities spontaneously. No edema, normal radial and dorsalis pedis pulses bilaterally. No cyanosis. 5 out of 5 strength noted all 4 extremities. BACK: no cervical, thoracic, lumbar midline tenderness. No saddle anesthesia, normal distal neurovascular exam. NEUROLOGICAL: Alert and oriented x3. Normal speech. cranial nerves II through X II grossly intact PSYCH: Normal affect, normal mood. SKIN: Warm, dry, normal turgor. No rashes or lesions noted. Course - Re-evaluation Re-evalutation: Laboratory 08/30/19 08/30/19 08/30/19 02:40 02:40 02:40 WBC 8.6 RBC 4.73 Hgb 13.6 Hct 40.5 MCV 86 MCH 28.7 MCHC 33.5 RDW 15.1 H Plt Count 498 H Lymph % (Auto) 39.0 Pender % (Auto) 10.4 Eos % (Auto) 2.4 Baso % (Auto) 1.3 Absolute Neuts (auto) 4.0 Absolute Lymphs (auto) 3.4 Absolute Monos (auto) 0.9 Absolute Eos (auto) 0.2 Absolute Basos (auto) 0.1 Seg Neutrophils % 46.9 Carboxyhemoglobin Sodium 142.2 Potassium 4.2 Chloride 108 H Carbon Dioxide 23 Anion Gap 11 BUN 19 Creatinine 0.57 Est GFR ( Amer) > 60 Est GFR (MDRD) Non-Af > 60 Glucose 80 Calcium 9.8 Total Bilirubin 0.4 Direct Bilirubin 0.1 Neonat Total Bilirubin Not Reportable Neonat Direct Bilirubin Not Reportable Neonat Indirect Bili Not Reportable AST 17 ALT 15 Alkaline Phosphatase 72 Troponin I < 0.012 Total Protein 7.3 Albumin 4.4 Urine Color Urine Appearance Urine pH Ur Specific [place] Urine Protein Urine Glucose (UA) Urine Ketones Urine Blood Urine Nitrite Urine Bilirubin Urine Urobilinogen Ur Leukocyte Esterase Urine WBC (Auto) Urine RBC (Auto) Urine Bacteria (Auto) Squamous Epi Cells Auto Urine Mucus (Auto) Urine Ascorbic Acid 08/30/19 08/30/19 03:20 04:08 WBC RBC Hgb Hct MCV MCH MCHC RDW Plt Count Lymph % (Auto) Pender % (Auto) Eos % (Auto) Baso % (Auto) Absolute Neuts (auto) Absolute Lymphs (auto) Absolute Monos (auto) Absolute Eos (auto) Absolute Basos (auto) Seg Neutrophils % Carboxyhemoglobin 1.0 Sodium Potassium Chloride Carbon Dioxide Anion Gap BUN Creatinine Est GFR ( Amer) Est GFR (MDRD) Non-Af Glucose Calcium Total Bilirubin Direct Bilirubin Neonat Total Bilirubin Neonat Direct Bilirubin Neonat Indirect Bili AST ALT Alkaline Phosphatase Troponin I Total Protein Albumin Urine Color YELLOW Urine Appearance SLIGHTLY-CLOUDY Urine pH 5.0 Ur Specific [place] 1.013 Urine Protein NEGATIVE Urine Glucose (UA) NEGATIVE Urine Ketones NEGATIVE Urine Blood NEGATIVE Urine Nitrite NEGATIVE Urine Bilirubin NEGATIVE Urine Urobilinogen NEGATIVE Ur Leukocyte Esterase TRACE H Urine WBC (Auto) 5 Urine RBC (Auto) 1 Urine Bacteria (Auto) TRACE Squamous Epi Cells Auto 3 Urine Mucus (Auto) RARE Urine Ascorbic Acid NEGATIVE Head CT 08/30/19 02:20 IMPRESSION: No acute intracranial findings. Patient does show positive orthostatic changes. She has been treated with fluids in the emergency department. She has also been treated with the Zofran and Toradol for generalized nausea and headache. Patient voices she overall does feel better at this time. I discussed this case with hospitalist Dr. Saravia who will admit the patient for continued evaluation. EKG shows a sinus rhythm rate of 82, QTc 425, no ST segment elevations or depressions noted. - Vital Signs Vital signs: Temp Pulse Resp BP Pulse Ox 98.8 F 82 12 94/50 L 93 08/30/19 02:03 08/30/19 04:28 08/30/19 05:01 08/30/19 05:01 08/30/19 05:01 - Laboratory Result Diagrams: 08/30/19 02:40 08/30/19 02:40 Laboratory results interpreted by me: 08/30/19 08/30/19 08/30/19 02:40 02:40 04:08 RDW 15.1 H Plt Count 498 H Chloride 108 H Ur Leukocyte Esterase TRACE H Discharge - Discharge Clinical Impression: Orthostatic hypotension Syncope Qualifiers: Syncope type: unspecified Qualified Code(s): R55 - Syncope and collapse Condition: Stable Disposition: ADMITTED INPATIENT Admitting Provider: Rani (Hospitalist) Unit Admitted: Telemetry
[2019-08-30] MEDS ORDERED: MAG HYDROX/AL HYDROX/SIMETH SUSP 30 ML UDCUP PO PRN (05:58)
[2019-08-30] MEDS ORDERED: LEVALBUTEROL HCL NEB 0.63 MG/3 ML AMPUL NEB PRN (05:58)
[2019-08-30] MEDS ORDERED: ZOLPIDEM TARTRATE 5 MG TABLET PO PRN (05:58)
[2019-08-30] MEDS ORDERED: PROMETHAZINE HCL INJ 25 MG/1 ML VIAL IV PRN (05:58)
[2019-08-30] MEDS ORDERED: MAGNESIUM HYDROXIDE SUSP 30 ML UDCUP PO PRN (05:58)
[2019-08-30] MEDS ORDERED: NALBUPHINE HCL INJ 10 MG/1 ML AMPULE IV PRN (06:08)
--- NOTE | 2019-08-30 06:38 | PDOC H&P ---
History of Present Illness Admission Date/PCP: 08/30/19 05:27 LUCHO QUEEN MD Patient complains of: Syncopal episode History of Present Illness: RADHA COLE is a 69 year old female who presented to the emergency room with an acute syncopal episode. Patient admits that when she was getting ready to go to bed on the evening of 08/29/2019 she got up from a seated position to turn off the fireplace and lost consciousness waking sometime later having fallen at least partially on a couch or chair and the floor. Upon regaining consciousness she called out to her who summoned the ambulance. She noted the presence of a headache, generalized dizziness and nausea after the event all of which gradually improved to resolution over the course of 2-3 hours. She denies other accompanying or associated signs and symptoms. She denies prior similar episodes. She has not identified any aggravating or ameliorating factors for her syncopal episode. In the emergency room she was found to have a normal EKG, a unremarkable CT scan of the head and an essentially unremarkable laboratory evaluation. MRI of the brain done less than 1 month ago was negative for pathologic processes. She was subsequently admitted to the hospital for further evaluation and treatment. Past Medical History Cardiac Medical History: Denies: Atrial Fibrillation, Coronary Artery Disease, Hypertension Pulmonary Medical History: Reports: Asthma, Bronchitis, Pneumonia, Respiratory Failure EENT Medical History: Denies: Cataracts, Ears - Hearing aids Neurological Medical History: Reports: Other - Restless leg syndrome Denies: Hemorrhagic CVA, Ischemic CVA, Seizures Endocrine Medical History: Denies: Diabetes Mellitus Type 1, Diabetes Mellitus Type 2, Hyperthyroidism, Hypothyroidism Renal/ Medical History: Reports: Other - Urge incontinence Denies: Chronic Kidney Disease, Nephrolithiasis Malignancy Medical History: Reports: None GI Medical History: Reports: Gastroesophageal Reflux Disease Denies: Cirrhosis, Hepatitis, Peptic Ulcer Disease Musculoskeltal Medical History: Denies: Arthritis, Fibromyalgia, Gout Skin Medical History: Denies: Eczema, Psoriasis Psychiatric Medical History: Reports: Depression Denies: Alcohol Dependency, Substance Abuse, Tobacco Dependency Traumatic Medical History: Reports: None Hematology: Denies: Anemia, Bleeding Tendencies Infectious Medical History: Reports: None Past Surgical History Past Surgical History: Reports: Cholecystectomy, Hysterectomy, Other - Gavin fundoplication, urinary bladder sling, D&C Social History Information Source: Patient Lives with: Spouse/Significant other Smoking Status: Never Smoker Electronic Cigarette use?: No Frequency of Alcohol Use: Rare Hx Recreational Drug Use: No Drugs: None Hx Prescription Drug Abuse: No - Advance Directive Resuscitation Status: Full Code Surrogate healthcare decision maker:: Ryan Cole Family History Family History: CAD, COPD. denies: DM, Hypertension, Malignancy Parental Family History Reviewed: Yes Children Family History Reviewed: No Sibling(s) Family History Reviewed.: Yes Medication/Allergy Home Medications: Ropinirole HCl [Requip] 3 mg PO QID 10/02/14 Sertraline HCl [Zoloft 50 mg Tablet] 50 mg PO DAILY 10/02/14 Fesoterodine Fumarate [Toviaz] 4 mg PO DAILY 11/20/15 Aspirin [Ecotrin 81 mg EC Tablet] 81 mg PO DAILY #0 tabec 11/23/15 Atorvastatin Calcium [Lipitor 10 mg Tablet] 10 mg PO QHS #0 tablet 11/23/15 Benzonatate [Tessalon Perles 100 mg Capsule] 200 mg PO Q8 #0 capsule 11/23/15 Hydrocodone Bit/Homatropine [Hycodan 5-1.5 mg Tablet] 1 tab PO Q6HWA #0 tablet 11/23/15 Ipratropium/Albuterol Sulfate [Duoneb 3 ml Ampul] 3 ml NEB [id number] PRN #0 vial.neb 11/23/15 Lansoprazole [Prevacid 30 mg Odt Tablet] 30 mg PO BID #0 tab.boo. 11/23/15 Ropinirole HCl [Requip 2 mg Tablet] 2 mg PO Q6 #0 tablet 11/23/15 Sertraline HCl [Zoloft 50 mg Tablet] 50 mg PO DAILY #0 tablet 11/23/15 Allergies/Adverse Reactions: Sulfa (Sulfonamide Antibiotics) Allergy (Verified 10/02/14 12:57) Review of Systems Constitutional: PRESENT: as per HPI, headache(s). ABSENT: chills, fever(s) Eyes: PRESENT: visual disturbances - Recent problems with diplopia. ABSENT: other - Eye pain Ears: ABSENT: hearing changes, other - Ear pain Nose, Mouth, and Throat: PRESENT: as per HPI, headache(s). ABSENT: mouth pain, sore throat Cardiovascular: ABSENT: chest pain, palpitations Respiratory: ABSENT: cough, dyspnea Gastrointestinal: PRESENT: as per HPI, nausea. ABSENT: abdominal pain, constipation, diarrhea, vomiting Genitourinary: ABSENT: dysuria, hematuria Musculoskeletal: ABSENT: back pain, joint swelling, muscle weakness Neurological: PRESENT: as per HPI, dizziness, syncope. ABSENT: confusion, convulsions, focal weakness, memory loss Psychiatric: ABSENT: anxiety, depression Endocrine: ABSENT: cold intolerance, heat intolerance Hematologic/Lymphatic: ABSENT: easy bleeding, easy bruising Allergic/Immunologic: ABSENT: seasonal rhinorrhea Physical Exam Vital Signs: Temp Pulse Resp BP Pulse Ox 98.8 F 82 12 94/50 L 93 08/30/19 02:03 08/30/19 04:28 08/30/19 05:01 08/30/19 05:01 08/30/19 05:01 Intake & Output 08/28/19 08/29/19 08/30/19 23:59 23:59 23:59 Weight 63.049 kg General appearance: PRESENT: no acute distress, cooperative Head exam: PRESENT: atraumatic, normocephalic Eye exam: PRESENT: conjunctiva pink. ABSENT: conjunctival injection, scleral icterus Ear exam: PRESENT: normal external ear exam. ABSENT: bleeding, drainage Mouth exam: PRESENT: dry mucosa, neck supple Neck exam: ABSENT: thyromegaly, tracheal deviation Respiratory exam: PRESENT: clear to auscultation bola, symmetrical, unlabored Cardiovascular exam: PRESENT: RRR. ABSENT: clicks, gallop, rubs Pulses: PRESENT: normal radial pulses, normal dorsalis pedis pul Vascular exam: PRESENT: normal capillary refill. ABSENT: pallor GI/Abdominal exam: PRESENT: normal bowel sounds, soft Rectal exam: PRESENT: deferred Extremities exam: ABSENT: joint swelling, pedal edema Musculoskeletal exam: ABSENT: deformity, dislocation Neurological exam: PRESENT: alert, oriented to person, oriented to place, oriented to time, oriented to situation, CN II-XII grossly intact. ABSENT: motor sensory deficit Psychiatric exam: PRESENT: appropriate affect, normal mood Skin exam: PRESENT: dry, intact, warm. ABSENT: jaundice, rash, urticaria Results Laboratory Results: 08/30/19 02:40 08/30/19 02:40 08/30/19 08/30/19 08/30/19 02:40 02:40 03:20 WBC 8.6 RBC 4.73 Hgb 13.6 Hct 40.5 MCV 86 MCH 28.7 MCHC 33.5 RDW 15.1 H Plt Count 498 H Seg Neutrophils % 46.9 Carboxyhemoglobin 1.0 Sodium 142.2 Potassium 4.2 Chloride 108 H Carbon Dioxide 23 Anion Gap 11 BUN 19 Creatinine 0.57 Est GFR ( Amer) > 60 Glucose 80 Calcium 9.8 Total Bilirubin 0.4 AST 17 Alkaline Phosphatase 72 Total Protein 7.3 Albumin 4.4 Urine Color Urine Appearance Urine pH Ur Specific [place] Urine Protein Urine Glucose (UA) Urine Ketones Urine Blood Urine Nitrite Ur Leukocyte Esterase Urine WBC (Auto) Urine RBC (Auto) 08/30/19 04:08 WBC RBC Hgb Hct MCV MCH MCHC RDW Plt Count Seg Neutrophils % Carboxyhemoglobin Sodium Potassium Chloride Carbon Dioxide Anion Gap BUN Creatinine Est GFR ( Amer) Glucose Calcium Total Bilirubin AST Alkaline Phosphatase Total Protein Albumin Urine Color YELLOW Urine Appearance SLIGHTLY-CLOUDY Urine pH 5.0 Ur Specific [place] 1.013 Urine Protein NEGATIVE Urine Glucose (UA) NEGATIVE Urine Ketones NEGATIVE Urine Blood NEGATIVE Urine Nitrite NEGATIVE Ur Leukocyte Esterase TRACE H Urine WBC (Auto) 5 Urine RBC (Auto) 1 08/30/19 02:40 Troponin I < 0.012 Impressions: Head CT 08/30/19 02:20 IMPRESSION: No acute intracranial findings. Assessment and Plan - Diagnosis (1) Syncope Qualifiers: Syncope type: unspecified Qualified Code(s): R55 - Syncope and collapse Is this a current diagnosis for this admission?: Yes (2) Orthostatic hypotension Is this a current diagnosis for this admission?: Yes (3) Asthma Qualifiers: Asthma severity: unspecified severity Asthma persistence: intermittent Asthma complication type: unspecified Qualified Code(s): J45.20 - Mild intermittent asthma, uncomplicated Is this a current diagnosis for this admission?: Yes (4) GERD (gastroesophageal reflux disease) Qualifiers: Esophagitis presence: with esophagitis Qualified Code(s): K21.0 - Gastro- esophageal reflux disease with esophagitis Is this a current diagnosis for this admission?: Yes (5) Restless leg syndrome Is this a current diagnosis for this admission?: Yes (6) Depression Qualifiers: Depression Type: unspecified Qualified Code(s): F32.9 - Major depressive disorder, single episode, unspecified Is this a current diagnosis for this admission?: Yes - Plan Summary Summary: Patient will be admitted to a medical bed with telemetry. She will receive usual supportive and symptomatic cares. She will have a cardiology consultation obtained with Dr. Renteria. An echocardiogram and carotid Doppler studies will be performed. Serial cardiac enzymes will be obtained initially. Patient's vital signs will be assessed every 4 hours with orthostatic vital signs performed every shift. Neurochecks will be performed every 4 hours. Further evaluation or treatment will be determined based upon the results of her initial studies. She will be continued on her usual medications for chronic medical illnesses as appropriate. She will use Nubain 5 to 10 mg IV every 3 cecilia rs on an as-needed basis for headache. - Time Time Spent with patient: 25-34 minutes Medications reviewed and adjusted accordingly: Yes Anticipated discharge: Home - Inpatient Certification Based on my medical assessment, after consideration of the patient's comorbidities, presenting symptoms, or acuity I expect that the services needed warrant INPATIENT care.: Yes I certify that my determination is in accordance with my understanding of Medicare's requirements for reasonable and necessary INPATIENT services [42 CFR 412.3e].: Yes Medical Necessity: Need Close Monitoring Due to Risk of Patient Decompensation, Need for Neurological Checks, Risk of Complication if Not Cared For in Hospital, Risk of Diagnosis Which Will Require Inpatient Eval/Care/Monitoring
--- NOTE | 2019-08-30 08:37 | EKG REPORT ---
SEVERITY:- NORMAL ECG - SINUS RHYTHM : Confirmed by: Stoney Khan MD 30-Aug-2019 08:37:03
[2019-08-30 09:45] LABS: CREATINE KINASE MB 0.64 ng/mL (<4.55)
[2019-08-30 09:47] LABS: TROPONIN I < 0.012 ng/mL
[2019-08-30] MEDS: HEPARIN SOD (PORCINE) 5,000 UNIT/ML 1 ML VIAL SUBCUT SCH ×3 (09:55→21:45)
[2019-08-30] MEDS: DOCUSATE SODIUM 100 MG CAPSULE PO SCH ×2 (10:02→13:27)
[2019-08-30] MEDS: FAMOTIDINE 20 MG TABLET PO SCH ×2 (10:02→17:21)
[2019-08-30 15:53] LABS: CREATINE KINASE MB 0.61 ng/mL (<4.55)
[2019-08-30 15:58] LABS: TROPONIN I < 0.012 ng/mL
[2019-08-30] MEDS ORDERED: (PENDING PHARMACY ID) (Ropinirole Hcl [Requip] 1 MG) PO PRN (17:32)
[2019-08-30] MEDS ORDERED: ROPINIROLE HCL 3 MG PO PRN (17:32)
[2019-08-30] MEDS ORDERED: ROPINIROLE HCL 1 MG TABLET PO PRN (17:55)
[2019-08-30 21:28] LABS: CREATINE KINASE MB 0.55 ng/mL (<4.55)
[2019-08-30 21:36] LABS: TROPONIN I < 0.012 ng/mL
[2019-08-30] MEDS: SERTRALINE HCL 50 MG TABLET PO SCH (21:44)
[2019-08-31 05:17] LABS: HEMOGLOBIN 12.8 g/dL (12.0-15.5); MEAN CORPUSCULAR HEMOGLOBIN 28.7 pg (27.0-33.4); MEAN CORPUSCULAR HGB CONC 33.7 g/dL (32.0-36.0); MEAN CORPUSCULAR VOLUME 85 fl (80-97); PLATELET COUNT 467 10^3/uL (150-450); RED BLOOD COUNT 4.46 10^6/uL (3.72-5.28); RED CELL DISTRIBUTION WIDTH 15.3 % (11.5-14.0); WHITE BLOOD COUNT 7.2 10^3/uL (4.0-10.5)
[2019-08-31 05:36] LABS: ANION GAP 8 (5-19); BLOOD UREA NITROGEN 15 mg/dL (7-20); CALCIUM 9.5 mg/dL (8.4-10.2); CARBON DIOXIDE 22 mmol/L (22-30); CHLORIDE 111 mmol/L (98-107); GLUCOSE 90 mg/dL (75-110); POTASSIUM 4.2 mmol/L (3.6-5.0)
[2019-08-31] MEDS: HEPARIN SOD (PORCINE) 5,000 UNIT/ML 1 ML VIAL SUBCUT SCH (06:21)
[2019-08-31] MEDS: SERTRALINE HCL 50 MG TABLET PO SCH (09:52)
[2019-08-31] MEDS ORDERED: PANTOPRAZOLE SODIUM 20 MG TABLET.DR PO SCH (10:00)
--- NOTE | 2019-08-31 12:32 | RADIOLOGY REPORT (SQ) ---
EXAM DESCRIPTION: CAROTID DOPPLER COMPLETED DATE/TIME: 08/31/2019 11:30 am REASON FOR STUDY: syncope COMPARISON: None. TECHNIQUE: Grayscale ultrasound, Doppler velocity and spectra, and color Doppler images acquired of the extra-cranial carotid and vertebral arteries. Images stored on PACS. LIMITATIONS: None. FINDINGS: RIGHT CAROTID CCA Velocities: Within normal limits. ICA Velocities Peak systolic 67 cm/s. End diastolic 25 cm/s. Proximal ICA/CCA peak systolic ratio 1.04. Spectra normal. Grayscale evaluation without significant stenosis. LEFT CAROTID CCA Velocities: Within normal limits. ICA Velocities Peak systolic 61cm/s. End diastolic 22 cm/s. Proximal ICA/CCA peak systolic ratio 0.85. Spectra normal. Grayscale evaluation without significant stenosis. VERTEBRAL ARTERIES: Antegrade flow. Normal waveforms. SUBCLAVIAN ARTERIES: Not imaged. OTHER: No other significant finding. IMPRESSION: NO HEMODYNAMICALLY SIGNIFICANT STENOSIS. COMMENT: Quality ID #[id number]: Velocity criteria are extrapolated from the diameter data as defined by t he Society of Radiologists in Ultrasound Consensus Conference. Radiology 2003: 229; 340-346. TECHNICAL DOCUMENTATION: JOB ID: [id number] [employer]- All Rights Reserved Reading location - IP/workstation name: [email or web address]
[2019-08-31 13:33] VITALS: BP 138/83
[2019-08-31] MEDS ORDERED: ROPINIROLE HCL 1 MG TABLET PO PRN (14:00)
--- NOTE | 2019-08-31 17:49 | XCELERA REPORT ---
[address] [address] Transthoracic Echocardiogram Report Name: RADHA GALLEGO Age: 69 yrs Gender: Female : 1950 Patient Status: Inpatient Patient Location: [address] [place], [place] [address] Study Date: 08/31/2019 09:58 AM Height: 64 in Weight: 139 lb BSA: 1.7 m2 Procedure: A two-dimensional transthoracic echocardiogram with color flow and Doppler was performed. Study Quality: Fair. Reason For Study: syncope History: syncope. Ordering Physician: OBDULIO KIM Performed By: Pooja Barlow Interpretation Summary The left ventricle is normal in size. There is normal left ventricular wall thickness. LV EF is 65% Left ventricular systolic function is normal. Doppler measurements suggest impaired left ventricular relaxation, which is associated with grade I/IV or mild diastolic dysfunction The left ventricular wall motion is normal. There is no thrombus. No ASD,VSD,or PFO seen. The right ventricle is normal in size and function. The right atrium is normal. The left atrial size is normal. There is no evidence of mitral valve prolapse. There is no vegetation seen on the mitral valve. There is no mitral valve stenosis. There is no mitral regurgitation noted. There is no aortic valvular vegetation. There is no aortic valve stenosis There is no LVOT obstruction. No aortic regurgitation is present. There is no tricuspid stenosis. There is a mild amount of tricuspid regurgitation There is mild pulmonary hypertension by echo RVSP is 30 to 35 mm of Hg , with RA mean of 5 to 10. There is no pulmonic valvular stenosis. There is no pulmonic valvular regurgitation. The aortic root is normal size. The inferior vena cava appeared normal and decreased > 50% with respiration (RAP 5-10 mmHg) There is no pericardial effusion. MMode/2D Measurements & Calculations IVSd: 0.77 cm LVIDd: 4.3 cm FS: 38.3 % Ao root diam: 3.4 cm LVIDs: 2.7 cm EDV(Teich): 83.9 ml Ao root area: 9.3 cm2 LVPWd: 0.89 cm ESV(Teich): 26.1 ml EF(Teich): 68.9 % Doppler Measurements & Calculations MV E max zoë: MV dec slope: Ao V2 max: LV V1 max P.0 cm/sec 376.8 cm/sec2 115.2 cm/sec 2.9 mmHg MV A max zoë: MV dec time: 0.20 secAo max PG: LV V1 max: 98.3 cm/sec 5.3 mmHg 85.3 cm/sec MV E/A: 0.77 PA V2 max: TR max zoë: 65.6 cm/sec 247.4 cm/sec PA max P.7 mmHg TR max P.6 mmHg Left Ventricle The left ventricle is normal in size. There is normal left ventricular wall thickness. LV EF is 65%. Left ventricular systolic function is normal. Doppler measurements suggest impaired left ventricular relaxation, which is associated with grade I/IV or mild diastolic dysfunction. The left ventricular wall motion is normal. There is no thrombus. No ASD,VSD,or PFO seen. Right Ventricle The right ventricle is normal in size and function. Atria The right atrium is normal. The left atrial size is normal. Mitral Valve There is no evidence of mitral valve prolapse. There is no vegetation seen on the mitral valve. There is no mitral valve stenosis. There is no mitral regurgitation noted. Aortic Valve There is no aortic valvular vegetation. There is no aortic valve stenosis. There is no LVOT obstruction. No aortic regurgitation is present. Tricuspid Valve There is no tricuspid stenosis. There is a mild amount of tricuspid regurgitation. There is mild pulmonary hypertension by echo. RVSP is 30 to 35 mm of Hg , with RA mean of 5 to 10. Pulmonic Valve There is no pulmonic valvular stenosis. There is no pulmonic valvular regurgitation. Great Vessels The aortic root is normal size. The inferior vena cava appeared normal and decreased > 50% with respiration (RAP 5-10 mmHg). Effusions There is no pericardial effusion. : OBDULIO KIM Lakshmi
--- NOTE | 2019-08-31 22:20 | Left Against Medical Advice ---
Against Medical Advice Admission Date/Time: 08/30/19 05:27 Primary Care Provider: LUCHO QUEEN MD Date of Patient Emigration: 08/31/19 - Diagnosis: (1) Asthma Is this a current diagnosis for this admission?: Yes (2) Depression Is this a current diagnosis for this admission?: Yes (3) GERD (gastroesophageal reflux disease) Is this a current diagnosis for this admission?: Yes (4) Orthostatic hypotension Is this a current diagnosis for this admission?: Yes (5) Restless leg syndrome Is this a current diagnosis for this admission?: Yes (6) Syncope Is this a current diagnosis for this admission?: Yes - Summary: Summary: Please see Admission and Progress Notes as well. RADHA GALLEGO is a 69 F, who LEFT AGAINST MEDICAL ADVICE. The Patient was admitted on 08/30/19 05:27. Admitted to the medical floor on continuous cardiac telemetry for evaluation of syncopal episode at home. She was found to be orthostatic, which resolved following IV fluids. Remaining laboratory evaluation including troponins x4, TSH, and carboxyhemoglobin were normal. Head CT was negative for acute findings. Carotid Doppler negative for hemodynamically significant stenosis. And echocardiogram echocardiogram revealed LVEF greater than 65%, mild diastolic dysfunction, mild pulmonary hypertension, but otherwise normal study. Received a phone call this afternoon at approximately 1:30pm from nursing with report that patient was sitting her intention to leave AGAINST MEDICAL ADVICE. Nursing was advised that I was awaiting the finalized carotid Doppler and echocardiogram results, but fully anticipated discharging the patient today. Nursing informed me that the patient stated that she "did not intend to wait any longer as all [she] has been told to do is wait." Nursing was asked to let the patient know that I would arrive within an hour to discuss what results were available at that time, however, I would shortly thereafter notified that the patient had chosen to leave AGAINST MEDICAL ADVICE. Fortunately, this evening the aforementioned studies came back with normal results; confirming that her syncopal episode was likely orthostatic in nature which has since been corrected.
== END 2019-08-31 13:35 | disposition left against medical advice (07) | DRG 312 ==
LOC: ER 01:48 → EH 05:27 → 4W 14:49
PROVIDERS: ADMIT Emergency Medicine; ATTEND Emergency Medicine
DX: I95.1 Orthostatic hypotension (principal); R51 Headache; J45.20 Mild intermittent asthma, uncomplicated; K21.0 Gastro-esophageal reflux disease with esophagitis; F32.9 Major depressive disorder, single episode, unspecified; G25.81 Restless legs syndrome; Z79.82 Long term (current) use of aspirin; Z79.51 Long term (current) use of inhaled steroids; Z79.899 Other long term (current) drug therapy; Z88.2 Allergy status to sulfonamides
CPT/HCPCS: 36415; 70450; 80048; 80053; 81001; 82375; 82550; 82553; 83735; 84443; 84484; 85025; 85027; 93005; 93010; 93306; 93880; 96361; 96374; 96375; 99285; J1644; J1885; J2405; J3490; J7030

== ENCOUNTER 2020-10-10 15:42 | Emergency (ER) | payer MEDICARE, OTHER ==
--- NOTE | 2020-10-10 17:24 | ER Document Report ---
ED Medical Screen (RME) - General Chief Complaint: Chest Pain Stated Complaint: CHEST PAIN Time Seen by Provider: 10/10/20 17:14 Primary Care Provider: LUCHO QUEEN MD [Primary Care Provider] - Follow up as needed TRAVEL OUTSIDE OF THE [place] IN LAST 30 DAYS: No - HPI Notes: 10/10/20 17:21 70-year-old female with a history of GERD restless legs and esophageal spasm presents to the emergency room today for left-sided chest pain that started around 1 PM this afternoon is been constant since, reports that pain radiates to her left shoulder, denies pain radiating down her arm her shoulder or her back. No history of any cardiac issues. Former smoker 30 years ago. Denies any shortness of breath, nausea, vomiting. Patient took 324 baby aspirin prior to EMS coming. no fever or chills. pt reports that her previous EKG had inverted T's when an she was at her primary care office, she does have a referral to a machinist class b in November I have greeted and performed a rapid initial assessment of this patient. A comprehensive ED assessment and evaluation of the patient, analysis of test results and completion of the medical decision making process will be conducted by additional ED providers. PHYSICAL EXAMINATION: GENERAL: Well-appearing, well-nourished and in no acute distress. CV: s1, s2 regular LUNGS: No respiratory distress Musculoskeletal: Normal range of motion NEUROLOGICAL: Normal speech, normal gait. SKIN: Warm, Dry, normal turgor, no rashes or lesions noted. The patient was evaluated during a global COVID-19 pandemic and that diagnosis was suspected/considered upon their initial presentation. Their evaluation, treatment and testing was consistent with current guidelines for patients who present with complaints or symptoms and may be related to COVID-19. - Related Data Allergies/Adverse Reactions: Sulfa (Sulfonamide Antibiotics) Allergy (Verified 10/10/20 17:15) Home Medications: omeprazole, requip, zoloft (for esophageal spasms) Past Medical History - Social History Frequency of alcohol use: None Drug Abuse: Marijuana - Past Medical History Cardiac Medical History: Denies: Hx Atrial Fibrillation, Hx Coronary Artery Disease, Hx Hypertension Pulmonary Medical History: Reports: Hx Asthma, Hx Bronchitis, Hx COPD, Hx Pneumonia, Hx Respiratory Failure Neurological Medical History: Denies: Hx Seizures Endocrine Medical History: Denies: Hx Diabetes Mellitus Type 1, Hx Diabetes Mellitus Type 2, Hx Hyperthyroidism, Hx Hypothyroidism Renal/ Medical History: Denies: Hx Peritoneal Dialysis GI Medical History: Reports: Hx Gastroesophageal Reflux Disease. Denies: Hx Cirrhosis, Hx Hepatitis Musculoskeltal Medical History: Denies Hx Arthritis, Denies Hx Fibromyalgia, Denies Hx Gout Skin Medical History: Denies Hx Eczema, Denies Hx Psoriasis Psychiatric Medical History: Reports: Hx Depression Infectious Medical History: Denies: Hx Hepatitis Past Surgical History: Reports: Hx Abdominal Surgery - doug fundoplication, Hx Cholecystectomy, Hx Genitourinary Surgery - bladder sling, Hx Gynecologic Surgery - D&C, Hx Hysterectomy, Other - Gavin fundoplication, urinary bladder sling, D&C - Immunizations Hx Diphtheria, Pertussis, Tetanus Vaccination: - unk Physical Exam - Vital signs Vitals: Temp Pulse Resp BP Pulse Ox 97.8 F 70 16 119/71 98 10/10/20 16:46 10/10/20 16:46 10/10/20 16:46 10/10/20 16:46 10/10/20 16:46 Course - Vital Signs Vital signs: Temp Pulse Resp BP Pulse Ox 97.8 F 70 16 119/71 98 10/10/20 16:46 10/10/20 16:46 10/10/20 16:46 10/10/20 16:46 10/10/20 16:46 Doctor's Discharge - Discharge Referrals: LUCHO QUEEN MD [Primary Care Provider] - Follow up as needed
--- NOTE | 2020-10-10 17:48 | RADIOLOGY REPORT (SQ) ---
EXAM DESCRIPTION: CHEST SINGLE VIEW IMAGES COMPLETED DATE/TIME: 10/10/2020 2:34 pm REASON FOR STUDY: chest pain COMPARISON: 11/23/2015. EXAM PARAMETERS: NUMBER OF VIEWS: One view. TECHNIQUE: Single frontal radiographic view of the chest acquired. RADIATION DOSE: NA LIMITATIONS: None. FINDINGS: LUNGS AND PLEURA: No opacities, masses or pneumothorax. No pleural effusion. MEDIASTINUM AND HILAR STRUCTURES: No masses. Contour normal. HEART AND VASCULAR STRUCTURES: Heart normal in size. Normal vasculature. BONES: Chronic right rib fractures. No acute abnormality. HARDWARE: None in the chest. OTHER: No other significant finding. IMPRESSION: NO ACUTE RADIOGRAPHIC FINDING IN THE CHEST. TECHNICAL DOCUMENTATION: JOB ID: [id number] 2010 [employer]- All Rights Reserved Reading location - IP/workstation name: [email or web address]
[2020-10-10 18:44] LABS: ABSOLUTE BASOPHILS # (AUTO) 0.1 10^3/uL (0.0-0.2); ABSOLUTE EOSINOPHILS # (AUTO) 0.1 10^3/uL (0.0-0.6); ABSOLUTE LYMPHOCYTES (AUTO) 3.3 10^3/uL (0.5-4.7); ABSOLUTE MONOCYTES (AUTO) 0.6 10^3/uL (0.1-1.4); ABSOLUTE NEUT (AUTO) 7.3 10^3/uL (1.7-8.2); BASOPHILS % (AUTO) 1.2 % (0-2); EOSINOPHILS % (AUTO) 1.1 % (0-6); HEMATOCRIT 38.2 % (36.0-47.0); LYMPHOCYTES % (AUTO) 29.1 % (13-45); MEAN CORPUSCULAR HEMOGLOBIN 28.6 pg (27.0-33.4); MEAN CORPUSCULAR HGB CONC 34.1 g/dL (32.0-36.0); MEAN CORPUSCULAR VOLUME 84 fl (80-97); MONOCYTES % (AUTO) 4.8 % (3-13); PLATELET COUNT 555 10^3/uL (150-450); RED BLOOD COUNT 4.56 10^6/uL (3.72-5.28); SEGMENTED NEUTROPHILS % (AUTO) 63.8 % (42-78); TOTAL CELLS COUNTED % (AUTO) 100 %; WHITE BLOOD COUNT 11.5 10^3/uL (4.0-10.5)
[2020-10-10 19:01] LABS: ALBUMIN 4.4 g/dL (3.5-5.0); ALKALINE PHOSPHATASE 98 U/L (38-126); ASPARTATE AMINO TRANSFERASE 24 U/L (14-36); BILIRUBIN,DIRECT 0.3 mg/dL (0.0-0.4); BILIRUBIN,TOTAL 0.6 mg/dL (0.2-1.3); BLOOD UREA NITROGEN 16 mg/dL (7-20); CARBON DIOXIDE 28 mmol/L (22-30); CHLORIDE 102 mmol/L (98-107); CREATINE KINASE 85 U/L (30-135); GLUCOSE 94 mg/dL (75-110); POTASSIUM 5.3 mmol/L (3.6-5.0); TOTAL PROTEIN 7.3 g/dL (6.3-8.2)
[2020-10-10 19:02] LABS: ANION GAP 8 (5-19)
[2020-10-10 19:13] LABS: CREATINE KINASE MB 0.47 ng/mL (<4.55)
[2020-10-10 19:15] LABS: TROPONIN I < 0.012 ng/mL
--- NOTE | 2020-10-10 21:35 | EKG REPORT ---
SEVERITY:- NORMAL ECG - SINUS RHYTHM : Confirmed by: Melo Arshad MD 10-Oct-2020 21:34:37
[2020-10-11] MEDS ORDERED: ACETAMINOPHEN 325 MG TABLET PO ONE (02:14)
[2020-10-11] MEDS ORDERED: ASPIRIN 325 MG TABLET PO ONE (03:15)
--- NOTE | 2020-10-11 03:15 | ER Document Report ---
ED Cardiac <ROBERTCARIDAD Kidd - Last Filed: 10/11/20 09:03> - General TRAVEL OUTSIDE OF THE [place] IN LAST 30 DAYS: No - Related Data Home Medications: omeprazole, requip, zoloft (for esophageal spasms) <KHAI BRAR - Last Filed: 10/12/20 06:48> - General Chief Complaint: Chest Pain Stated Complaint: CHEST PAIN Time Seen by Provider: 10/10/20 17:14 Primary Care Provider: АННА MOLINA MD [ACTIVE STAFF] - Follow up in 3-5 days LUCHO QUEEN MD [Primary Care Provider] - Follow up in 3-5 days - [facility] Notes: Patient is a 70-year-old female with a past medical history of gastric reflux who presents for chest heaviness and pain down her left arm. Patient states it has been present off and on for 3 weeks. She is unsure what makes it better or worse. Today, she states that the symptoms increased. She states she felt " impending doom" which is why she came to the ER. Patient told her PCP about her symptoms who referred her to her adult school teacher but the adult school teacher appointment i s not until November. She denies any back pain. No lightheadedness or dizziness. No nausea or vomiting. No leg swelling. Patient has never had a cardiac work-up. She is a non-smoker. Patient has a positive family history. (KHAI BRAR) - Related Data Allergies/Adverse Reactions: Sulfa (Sulfonamide Antibiotics) Allergy (Verified 10/10/20 17:15) Past Medical History - General Information source: Patient - Social History Smoking Status: Never Smoker Frequency of alcohol use: None Drug Abuse: Marijuana Family History: CAD, COPD. denies: DM, Hypertension, Malignancy - Past Medical History Cardiac Medical History: Denies: Hx Atrial Fibrillation, Hx Coronary Artery Disease, Hx Hypertension Pulmonary Medical History: Reports: Hx Asthma, Hx Bronchitis, Hx COPD, Hx Pneumo janet, Hx Respiratory Failure Neurological Medical History: Denies: Hx Seizures Endocrine Medical History: Denies: Hx Diabetes Mellitus Type 1, Hx Diabetes Mellitus Type 2, Hx Hyperthyroidism, Hx Hypothyroidism Renal/ Medical History: Denies: Hx Peritoneal Dialysis GI Medical History: Reports: Hx Gastroesophageal Reflux Disease. Denies: Hx Cirrhosis, Hx Hepatitis Musculoskeletal Medical History: Denies Hx Arthritis, Denies Hx Fibromyalgia, Denies Hx Gout Skin Medical History: Denies Hx Eczema, Denies Hx Psoriasis Psychiatric Medical History: Reports: Hx Depression Infectious Medical History: Denies: Hx Hepatitis Past Surgical History: Reports: Hx Abdominal Surgery - doug fundoplication, Hx Cholecystectomy, Hx Genitourinary Surgery - bladder sling, Hx Gynecologic Surgery - D&C, Hx Hysterectomy, Other - Gavin fundoplication, urinary bladder sling, D&C - Immunizations Hx Diphtheria, Pertussis, Tetanus Vaccination: - unk <KHAI BRAR - Last Filed: 10/12/20 06:48> Review of Systems <KHAI BRAR - Last Filed: 10/12/20 06:48> - Review of Systems Notes: CONSTITUTIONAL: No fever, fatigue or weight loss. SKIN: No rash. HENT: No congestion, ear pain, or sore throat. CARDIOVASCULAR: Positive for chest pain. RESPIRATORY: No cough, shortness of breath, congestion, or wheezing. GASTROINTESTINAL: No abdominal pain, nausea, vomiting, bloody stools or diarrhea. MUSCULOSKELETAL: No joint pain or swelling. NEUROLOGIC: No seizures. No headache, focal weakness or sensory changes. HEMATOLOGIC: No unusual bruising or bleeding. PSYCHIATRIC: No depression or anxiety. (KHAI BRAR) Physical Exam - General General appearance: Appears well In distress: None <KHAI BRAR - Last Filed: 10/12/20 06:48> - Vital signs Vitals: Temp Pulse Resp BP Pulse Ox 97.8 F 70 16 119/71 98 10/10/20 16:46 10/10/20 16:46 10/10/20 16:46 10/10/20 16:46 10/10/20 16:46 - General Notes: VITAL SIGNS: Within normal limits. GENERAL: No acute distress, non-toxic appearance. HEAD: Normal with no signs of head trauma. EYES: EOMI, conjunctiva normal, no discharge. NECK: Normal range of motion, no tenderness, supple, no lymphadenopathy, No adenopathy, no JVD. CHEST: Clear breath sounds bilaterally. No wheezes, rales, or rhonchi. CARDIAC: Regular rate and rhythm. S1 and S2, without murmurs, gallops, or rubs. VASCULAR: No Edema. ABDOMEN: Normal and soft with no tenderness, no masses or pulsatile masses. MUSCULOSKELETAL: Good range of motion of all major joints. Extremities without clubbing, cyanosis or edema. NEUROLOGICAL: Alert and oriented x 3. No focal sensory or strength deficits. Speech normal. Follows commands appropriately. PSYCHIATRIC: Normal Affect, judgement and mood. SKIN: Normal appearance with no rashes or lesions. (KHAI BRAR) Course - Laboratory Results Result Diagrams: 10/10/20 18:27 10/10/20 18:27 <CARIDAD JONES - Last Filed: 10/11/20 09:03> - Laboratory Results Result Diagrams: 10/10/20 18:27 10/10/20 18:27 Critical Laboratory Results Reviewed: No Critical Results - Radiology Results Critical Radiology Results Reviewed: No Critical Results - EKG Interpretation by Me EKG shows normal: Sinus rhythm Rate: Normal Rhythm: NSR When compared to previous EKG there are: No significant change <KHAI BRAR - Last Filed: 10/12/20 06:48> - Re-evaluation Re-evalutation: 10/11/20 03:13 Patient had 2 - troponins, however, she is still having chest discomfort. She states that it was the worst today that it has been. She was very afraid that something bad was going to happen to her. Risk factors include age and family history. I will discuss with the hospitalist as I do believe she warrants an echo and further work-up since her heart score is 4. I discussed with Dr. Roe, she recommended a cardiology consult in the ER and discharge, discussed with Dr. Molina who will evaluate the patient. Likely she will be discharged if cardiology is okay with this. Patient will be signed out to Dr. Jones at the end of my shift. 10/11/20 06:35 10/11/20 07:52 10/12/20 06:48 (KHAI BRAR) - Vital Signs Vital signs: Temp Pulse Resp BP Pulse Ox 97.9 F 81 14 126/94 H 96 10/11/20 04:41 10/10/20 22:20 10/11/20 09:01 10/11/20 09:00 10/11/20 09:01 - Laboratory Results Laboratory Results Interpreted: 10/10/20 10/10/20 10/11/20 18: 18:27 04:34 WBC 11.5 H Plt Count 555 H Potassium 5.3 H POC Glucose 151 H - EKG Interpretation by Me Additional EKG results interpreted by me: 10/11/20 06:34 Initial EKG with a sinus rhythm at a rate of 70. QTc 432. No acute ST changes. Repeat EKG with a sinus rhythm at a rate of 79. Artifact present. No acute ST changes. EKG is similar to previous. (KHAI BRAR) Discharge <CARIDAD JONES - Last Filed: 10/11/20 09:03> <KHAI BRAR - Last Filed: 10/12/20 06:48> - Discharge Clinical Impression: Chest pain Qualifiers: Ischemic chest pain type: other angina pectoris type Condition: Stable Disposition: HOME, SELF-CARE Additional Instructions: Chest Pain of Unclear Cause The exact cause of your chest pain isn't clear. Fortunately, there is no evidence of a dangerous medical condition. Further testing may be required to f ind the source of the pain. Most often, we find that this pain is coming from the chest wall -- the muscles or rib joints in the chest. But chest pain can come from the lung and lung lining, the esophagus, the heart valves or heart lining, and even the stomach or gallbladder. Rest. Eat lightly until the pain is gone. We may prescribe medicine for pain and inflammation. You should call the physician immediately if the pain radiates to the shoulder, jaw or arms; if you start to run a fever or develop a cough; or if you develop shortness of breath, or other new or alarming symptoms. Follow-up with Dr. Анна Molina. RETURN TO THE EMERGENCY ROOM IF ANY NEW OR WORSENING SYMPTOMS. Referrals: LUCHO QUEEN MD [Primary Care Provider] - Follow up in 3-5 days АННА MOLINA MD [ACTIVE STAFF] - Follow up in 3-5 days
[2020-10-11] MEDS ORDERED: ONDANSETRON HCL INJ/PF 4 MG/2 ML SDV IV ONE (04:26)
--- NOTE | 2020-10-11 10:07 | PDOC CONSULTATION ---
Consultation Consult Date: 10/11/20 Provider Consulted: АННА MOLINA Consult reason:: Chest pain History of Present Illness Admission Date/PCP: LUCHO QUEEN MD Patient complains of: Chest pain History of Present Illness: RADHA GALLEGO is a 70 year old female With the following active problems 1. Restless leg syndrome 2. 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 She was evaluated by the emergency room physician on account of history of chest pain. Patient reports to me that she has been having episodes of chest pain for the last 3 weeks. A particular episode may last several hours and feels more like pressure. There is no reported autonomic symptoms such as diaphoresis. The pain radiates across the left upper extremity and is predominately localized to the left anterior chest wall. It does not radiate to the neck. No precipitating or relieving factors reported. No prior symptoms similar to this. No prior cardiac symptoms whatsoever. On a previous occasion earlier in September her primary care physician thought that her EKG was abnormal and generated a cardiology referral. That appointment is slotted in November 2020. Since admission to the emergency room patient's EKGs have been nondiagnostic for myocardial ischemia and a cardiac biomarkers have been negative. Her chest x-ray did not show any acute process. Patient presently is not complaining of chest pain. However she is quite anxious. No recent cardiac work-up is reported Patient does not report use of tobacco or alcohol at all. She is a retired nurse by profession. There is family history of cardiac illnesses including congestive heart failure. There is also mention of coronary artery disease but details are not very clear. Review of systems is positive for chest pain/chest pressure. There is no reported dyspnea, diaphoresis, palpitations, presyncope or syncope. Full 11 review systems was asked. Pertinent positives noted here and in the HPI all other systems are negative. Past Medical History Cardiac Medical History: Denies: Atrial Fibrillation, Coronary Artery Disease, Hypertension Pulmonary Medical History: Reports: Asthma, Bronchitis, Chronic Obstructive Pulmonary Disease (COPD), Pneumonia, Respiratory Failure Neurological Medical History: Denies: Seizures Endocrine Medical History: Denies: Diabetes Mellitus Type 1, Diabetes Mellitus Type 2, Hyperthyroidism, Hypothyroidism GI Medical History: Reports: Gastroesophageal Reflux Disease Denies: Cirrhosis, Hepatitis Musculoskeltal Medical History: Denies: Arthritis, Fibromyalgia, Gout Skin Medical History: Denies: Eczema, Psoriasis Psychiatric Medical History: Reports: Depression Hematology: Denies: Anemia, Bleeding Tendencies Past Surgical History Past Surgical History: Reports: Cholecystectomy, Hysterectomy, Other - Gavin fundoplication, urinary bladder sling, D&C Social History Smoking Status: Never Smoker Frequency of Alcohol Use: Rare Hx Recreational Drug Use: Yes Drugs: Marijuana Hx Prescription Drug Abuse: No Family History Family History: CAD, COPD. denies: DM, Hypertension, Malignancy Parental Family History Reviewed: Yes - No familial illnesses other than some cardiac history although details not Children Family History Reviewed: NA Sibling(s) Family History Reviewed.: NA Medication/Allergy Home Medications: Omeprazole 20 mg PO DAILY 08/30/19 Ropinirole HCl [Requip] 1 mg PO DAILY@1400 PRN 08/30/19 Ropinirole HCl [Requip] 3 mg PO HSP PRN 08/30/19 Sertraline HCl [Zoloft 50 mg Tablet] 50 mg PO DAILY 08/30/19 Allergies/Adverse Reactions: Sulfa (Sulfonamide Antibiotics) Allergy (Verified 10/10/20 17:15) Review of Systems Constitutional: ABSENT: as per HPI, anorexia, chills, fatigue, fever(s), headache(s), night sweats, weakness, weight gain, weight loss, other Eyes: ABSENT: as per HPI, visual disturbances, other Nose, Mouth, and Throat: ABSENT: as per HPI, headache(s), mouth pain, sore throat, vertigo, other Cardiovascular: PRESENT: chest pain Respiratory: ABSENT: as per HPI, cough, dyspnea, hemoptysis, sputum, other Gastrointestinal: ABSENT: as per HPI, abdominal pain, bloating, coffee ground emesis, constipation, diarrhea, dysphagia, heartburn, hematemesis, hematochezia, melena, nausea, vomiting, other Genitourinary: ABSENT: as per HPI, difficulty urinating, dysuria, hematuria, nocturia, other Integumentary: ABSENT: as per HPI, diaphoresis, erythema, lesions, pruritus, rash, wounds, other Neurological: ABSENT: as per HPI, abnormal gait, abnormal movements, abnormal speech, confusion, convulsions, dizziness, focal weakness, frequent falls, lack of coordination, memory loss, numbness, paresthesias, restless legs, syncope, tingling, tremor(s), vertigo, weakness, other Physical Exam Vital Signs: Temp Pulse Resp BP Pulse Ox 97.9 F 81 14 124/89 H 98 10/11/20 04:41 10/10/20 22:20 10/11/20 07:04 10/11/20 07:04 10/11/20 07:04 Intake & Output 10/10/20 10/11/20 10/12/20 06:59 06:59 06:59 Weight 67.585 kg General appearance: PRESENT: no acute distress, cooperative, well-developed, well-nourished Head exam: PRESENT: atraumatic, normocephalic Eye exam: PRESENT: conjunctiva pink, EOMI Ear exam: PRESENT: normal external ear exam Mouth exam: PRESENT: moist Neck exam: PRESENT: full ROM Respiratory exam: PRESENT: clear to auscultation bola, symmetrical, unlabored Cardiovascular exam: PRESENT: RRR, +S1, +S2 GI/Abdominal exam: PRESENT: soft Rectal exam: PRESENT: deferred Extremities exam: ABSENT: calf tenderness, clubbing, full ROM, joint swelling, pedal edema, tenderness, +1 edema, +2 edema, other Musculoskeletal exam: PRESENT: normal inspection Neurological exam: PRESENT: alert, awake, oriented to person, oriented to place, oriented to time, oriented to situation, CN II-XII grossly intact Psychiatric exam: PRESENT: appropriate affect Skin exam: PRESENT: dry, intact, normal color Results Laboratory Results: 10/10/20 18:27 10/10/20 18:27 10/10/20 10/10/20 18:27 18:27 WBC 11.5 H RBC 4.56 Hgb 13.0 Hct 38.2 MCV 84 MCH 28.6 MCHC 34.1 RDW 14.0 Plt Count 555 H Seg Neutrophils % 63.8 Sodium 138.3 Potassium 5.3 H Chloride 102 Carbon Dioxide 28 Anion Gap 8 BUN 16 Creatinine 0.55 Est GFR ( Amer) > 60 Glucose 94 Calcium 10.0 Total Bilirubin 0.6 AST 24 Alkaline Phosphatase 98 Total Protein 7.3 Albumin 4.4 10/10/20 10/10/20 10/10/20 18:27 18:27 23:33 Creatine Kinase 85 CK-MB (CK-2) 0.47 Troponin I < 0.012 < 0.012 EKG Comments: Twelve-lead EKG 10/11/2020. 433. Independently viewed by me. Sinus rhythm with baseline artifact 79 bpm, normal AV conduction. QTc is 441 ms Twelve-lead EKG 10/10/2020 1619 Sinus rhythm, 70 bpm, normal AV conduction, QTC 432 ms. Transthoracic echocardiogram 08/31/2019 Left ventricle ejection fraction 65% Mild diastolic dysfunction There is no significant valve lesion mentioned no pericardial effusion is noted. Pharmacological stress test 11/23/2015 No scintigraphic evidence of Lexiscan induced myocardial ischemia. No evidence of infarction or scar. Chest x-ray 10/10/2020 1750 No acute radiographic finding in the chest White blood cell count 11.5 Hemoglobin and hematocrit 13/38.2 White platelet count is 555 INR is 0.95 Serum creatinine is 0.55 Potassium is 5.3 Troponin less than 0.12x2 Impressions: Chest X-Ray 10/10/20 17:15 IMPRESSION: NO ACUTE RADIOGRAPHIC FINDING IN THE CHEST. Assessment & Plan - Diagnosis (1) Chest pain Qualifiers: Ischemic chest pain type: other angina pectoris type Is this a current diagnosis for this admission?: Yes Plan: Chest pain with atypical description of symptoms EKG is nondiagnostic for myocardial ischemia. Cardiac biomarkers are negative Paucity of risk factors for coronary disease other than family history and age Previous evaluation although remote for coronary artery disease with pharmacological nuclear stress test was unremarkable in 2016 Given current presentation and the fact that the patient is chest pain-free and that cardiac biomarkers and EKG nondiagnostic outpatient evaluation can be pursued with perhaps a repeat of nuclear stress test to evaluate for myocardial ischemia given paucity of risk factors and atypical description of symptoms. I would recommend that the patient take aspirin 81 mg a day. I will go and make an appointment for the patient to see me in the office. The above plan was communicated with the patient and she is in full understanding and agreement. The plan was also discussed with the ED physician who is in agreement.
--- NOTE | 2020-10-11 10:09 | EKG REPORT ---
SEVERITY:- ABNORMAL ECG - SINUS RHYTHM : Confirmed by: Melo Arshad MD 11-Oct-2020 10:09:12
[2020-10-11 10:15] VITALS: BP 126/94
== END 2020-10-11 10:13 | disposition home or self-care (01) ==
LOC: ER 15:42
DX: I20.9 Angina pectoris, unspecified (principal); M79.602 Pain in left arm; J44.9 Chronic obstructive pulmonary disease, unspecified; K21.9 Gastro-esophageal reflux disease without esophagitis; F32.9 Major depressive disorder, single episode, unspecified; Z79.899 Other long term (current) drug therapy; Z88.2 Allergy status to sulfonamides; Z82.49 Family history of ischemic heart disease and other diseases of the circulatory system
CPT/HCPCS: 93005; 99285; 96374; 36415; 82553; 82962; 82550; 85025; 80053; 84484; 71045; 93010; A9270 ×2; J2405